=== PATIENT | female | born 1985 | race American Indian/Alaskan Native ===

== ENCOUNTER 2017-08-24 17:41 | Emergency (ER) | payer OTHER ==
[2017-08-24 18:05] VITALS: TEMP 97.8
--- NOTE | 2017-08-24 18:28 | ED PDOC ---
Arrival/HPI - General Chief Complaint: Chest Pain Time Seen by Provider: 08/24/17 17:46 Historian: Patient - History of Present Illness Narrative History of Present Illness (Text): 08/24/17 18:28 A 31 year old female, whose past medical history includes asthma, presents to the emergency department complaining of a cough with wheezing for 6 days. Patient reports her symptoms have improved over the past 2 days. Until today when she developed right upper chest wall pain which she describes as "having a knot in my chest". Patient denies any fever, chills, nausea, vomiting, abdominal pain, shortness of breath or any other complaints. Patient reports old right leg pain which she has had for years. At times she experiences the pain with ambulation but states she unsure what truly exacerbates her pain. Patient denies recent travel, immobilization, surgery or control use. Time/Duration: Other (6 days) Symptom Course: Improving (over past 2 days) Quality: Other Context: Home Past Medical History - Provider Review Nursing Documentation Reviewed: Yes - Infectious Disease Hx of Infectious Diseases: None - Pulmonary Hx Asthma: Yes - Psychiatric Hx Substance Use: No Family/Social History - Physician Review Nursing Documentation Reviewed: Yes Family/Social History: No Known Family HX Smoking Status: Never Smoked Hx Alcohol Use: No Hx Substance Use: No Allergies/Home Meds Allergies/Adverse Reactions: Allergies acetaminophen [From Tylenol] Allergy (Verified 08/24/17 17:55) ANAPHYLAXIS lepirudin [From Refludan] Allergy (Verified 08/24/17 17:55) ANAPHYLAXIS Home Medications: Home Meds Medication Instructions Recorded Confirmed No Known Home Med 08/24/17 08/24/17 Review of Systems - Physician Review All systems were reviewed & negative as marked: Yes - Review of Systems Constitutional: absent: Fevers, Night Sweats Respiratory: Cough, Wheezing. absent: SOB Cardiovascular: Chest Pain (right upper chest wall pain) Gastrointestinal: absent: Abdominal Pain, Nausea, Vomiting Musculoskeletal: Other (old right leg pain) Physical Exam Vital Signs Reviewed: Yes Vital Signs Temp Pulse Resp BP Pulse Ox 08/24/17 18:04 97.8 F 79 18 128/85 100 08/24/17 18:00 98.3 F 69 18 123/85 100 Temperature: Afebrile Blood Pressure: Normal Pulse: Regular Respiratory Rate: Normal Appearance: Positive for: Well-Appearing, Non-Toxic, Comfortable Pain Distress: None Mental Status: Positive for: Alert and Oriented X 3 - Systems Exam Head: Present: Atraumatic, Normocephalic Pupils: Present: PERRL Extroacular Muscles: Present: EOMI Conjunctiva: Present: Normal Mouth: Present: Moist Mucous Membranes Neck: Present: Normal Range of Motion Respiratory/Chest: Present: Clear to Auscultation, Good Air Exchange, Tender to Palpation (Right upper chest wall tenderness). No: Respiratory Distress, Accessory Muscle Use Cardiovascular: Present: Regular Rate and Rhythm, Normal S1, S2. No: Murmurs Abdomen: Present: Normal Bowel Sounds. No: Tenderness, Distention, Peritoneal Signs Back: Present: Normal Inspection Upper Extremity: Present: Normal Inspection. No: Cyanosis, Edema Lower Extremity: Present: Normal Inspection. No: Edema Neurological: Present: GCS=15, CN II-XII Intact, Speech Normal Skin: Present: Warm, Dry, Normal Color. No: Rashes Psychiatric: Present: Alert, Oriented x 3, Normal Insight, Normal Concentration Medical Decision Making ED Course and Treatment: 08/24/17 18:28 Impression: A 31 year old female with right upper chest wall pain. Patient notes a cough and wheezing, which has been improving. Chest pain r/o MSK; low suspicion for PE Plan: -- Chest xray -- EKG -- Labs -- Toradol -- Albuterol -- Reassess and disposition Progress Notes: EKG shows NSR at [address]-segment elevations, normal intervals, normal axis. Interpreted by me. 08/24/17 18:53 Case signed out for Dr. Meyers who will f/u labs, CXR, reevaluate and disposition. - Lab Interpretations Lab Results: 08/24/17 17:55 Lab Results 08/24/17 17:55: WBC 5.3, RBC 4.15, Hgb 12.1, Hct 36.3, MCV 87.5, MCH 29.2, MCHC 33.3, RDW 12.7, Plt Count 290, MPV 11.4 H, Gran % 46.2 L, Lymph % (Auto) 42.9 H , [place] % (Auto) 7.9 H, Eos % (Auto) 2.4, Baso % (Auto) 0.6, Gran # 2.47, Lymph # 2.3, [place] # 0.4, Eos # 0.1, Baso # 0.03 I have reviewed the lab results: Yes - RAD Interpretation Radiology Orders: 08/24/17 18:13 CHEST PORTABLE [RAD] Stat - Medication Orders Current Medication Orders: Discontinued Medications Ketorolac Tromethamine (Toradol) 30 mg IVP STAT STA Stop: 08/24/17 18:14 - Scribe Statement The provider has reviewed the documentation as recorded by the Scribe Valarie Glaser Provider Scribe Attestation: All medical record entries made by the Scribe were at my direction and personally dictated by me. I have reviewed the chart and agree that the record accurately reflects my personal performance of the history, physical exam, medical decision making, and the department course for this patient. I have also personally directed, reviewed, and agree with the discharge instructions and disposition. Disposition/Present on Arrival - Present on Arrival Any Indicators Present on Arrival: No History of DVT/PE: No History of Uncontrolled Diabetes: No Urinary Catheter: No History of Decub. Ulcer: No History Surgical Site Infection Following: None - Disposition Have Diagnosis and Disposition been Completed?: No Diagnosis: Chest pain Disposition Time: 18:54 Condition: FAIR Discharge Instructions (ExitCare): Chest Pain (ED) Forms: [employer] (Malaysian)
[2017-08-24 18:37] LABS: BASO # 0.03 K/mm3 (0.0-2.0); BASO % 0.6 % (0.0-3.0); EOS # 0.1 (0.0-0.7); EOS % 2.4 % (1.5-5.0); GRAN # 2.47 (1.4-6.5); GRAN % 46.2 % (50.0-68.0); HEMOGLOBIN 12.1 g/dL (12.0-16.0); LYMPH # 2.3 (1.2-3.4); LYMPH % 42.9 % (22.0-35.0); MEAN CELL VOLUME 87.5 fl (80.0-105.0); MEAN CORPUSCULAR HEMOGLOBIN 29.2 pg (25.0-35.0); MEAN CORPUSCULAR HGB CONC 33.3 g/dl (31.0-37.0); MEAN PLATELET VOLUME 11.4 fl (7.0-11.0); MONO # 0.4 (0.1-0.6); MONO % 7.9 % (1.0-6.0); RBC 4.15 10^6/uL (3.5-6.1); RED CELL DISTRIBUTION WIDTH 12.7 % (11.5-14.5); WHITE BLOOD COUNT 5.3 10^3/ul (4.5-11.0)
[2017-08-24] MEDS ORDERED: Albuterol 0.083% Inhal Sol (2.5 mg/3 mL) UD IH STA (18:53)
[2017-08-24 18:55] LABS: TROPONIN I 0.01 ng/mL
[2017-08-24 18:56] LABS: INR 1.09 (0.93-1.08); PROTHROMBIN TIME 12.5 SECONDS (9.4-12.5)
[2017-08-24 19:14] LABS: ALB/GLOB RATIO 1.1 (1.1-1.8); ALBUMIN 4.1 g/dL (3.0-4.8); ALT/SGPT 34 U/L (7-56); AST/SGOT 42 U/L (14-36); BLOOD UREA NITROGEN 14 mg/dL (7-21); CALCIUM 9.1 mg/dL (8.4-10.5); GFR AFRICAN-AMERICAN > 60; GFR NON-AFRICAN AMERICAN > 60; MAGNESIUM 1.9 mg/dL (1.7-2.2)
[2017-08-24 19:22] LABS: CK-MB 0.5 ng/mL (0.0-3.6)
[2017-08-24] MEDS ORDERED: Iohexol 350 MG/100 ML VIAL ONE (20:32)
--- NOTE | 2017-08-24 23:12 | CT ---
EXAM: CT Angiography Chest With Intravenous Contrast EXAM DATE/TIME: 08/24/2017 9:09 PM CLINICAL HISTORY: The patient age is 31 years old and is female; Pain; Chest pain; Type not specified; Additional info: R/O pe / chest pain Facility exam id and description: Ct formerly [facility] angio chest pe protocol TECHNIQUE: Axial computed tomographic angiography images of the chest with intravenous contrast using pulmonary embolism protocol. All CT scans at this facility use one or more dose reduction techniques, viz.: automated exposure control; ma/kV adjustment per patient size (including targeted exams where dose is matched to indication; i.e. head); or iterative reconstruction technique. MIP reconstructed images were created and reviewed. Coronal and sagittal reformatted images were created and reviewed. CONTRAST: 100 mL of OMNI 350 administered intravenously. COMPARISON: No relevant prior studies available. FINDINGS: Pulmonary arteries: The main pulmonary trunk, right/left main pulmonary arteries, and the proximal lobar branches demonstrate no definite intraluminal filling defect to suggest pulmonary embolism. Aorta: There is no aneurysm or dissection of the aorta. Lungs: Mild increased interstitial markings and dependent atelectatic change are visualized within the lower lobes. There is no confluent infiltrate within the remaining lungs. No lung mass or dominant lung nodule is visualized. Pleural space: No significant effusion. No pneumothorax. Heart: Fluid is seen in the superior pericardial recesses. No cardiomegaly. Mediastinum: There is mild increased density within the anterior mediastinum, suggestive of thymic tissue or volume averaging with the brachiocephalic vein. Bones/joints: No acute fracture. Lymph nodes: No enlarged lymph nodes. IMPRESSION: 1. No acute pulmonary embolism. 2. Mild increased interstitial markings and dependent atelectatic change are visualized within the lower lobes. 3. Additional CT findings described above.
--- NOTE | 2017-08-24 23:50 | ED PDOC ---
Physical Exam - Physical Exam Narrative Physical Exam (Text): 08/24/17 19:[address] of chest angiogram prior to final disposition/discharge. Patient's symptoms are consistent with asthma and musculoskeletal chest pain. Review of labs showed slightly elevated d-dimer. CT of chest performed, results currently pending. Vital Signs Reviewed: Yes Vital Signs Temp Pulse Resp BP Pulse Ox 08/24/17 18:04 97.8 F 79 18 128/85 100 08/24/17 18:00 98.3 F 69 18 123/85 100 Temperature: Afebrile Blood Pressure: Normal Pulse: Regular Respiratory Rate: Normal Appearance: Positive for: Well-Appearing, Non-Toxic, Comfortable Pain Distress: None Mental Status: Positive for: Alert and Oriented X 3 - Systems Exam Head: Present: Atraumatic, Normocephalic Pupils: Present: PERRL Extroacular Muscles: Present: EOMI Conjunctiva: Present: Normal Mouth: Present: Moist Mucous Membranes Neck: Present: Normal Range of Motion Respiratory/Chest: Present: Clear to Auscultation, Good Air Exchange. No: Respiratory Distress, Accessory Muscle Use Cardiovascular: Present: Regular Rate and Rhythm, Normal S1, S2. No: Murmurs Abdomen: Present: Normal Bowel Sounds. No: Tenderness, Distention, Peritoneal Signs Back: Present: Normal Inspection Upper Extremity: Present: Normal Inspection. No: Cyanosis, Edema Lower Extremity: Present: Normal Inspection. No: Edema Neurological: Present: GCS=15, CN II-XII Intact, Speech Normal Skin: Present: Warm, Dry, Normal Color. No: Rashes Psychiatric: Present: Alert, Oriented x 3, Normal Insight, Normal Concentration Medical Decision Making ED Course and Treatment: 08/24/17 23:[address] scan finally came back from [facility], negative for pulmonary embolism. Patient is feeling fine upon reassessment. Will discharge home. - Lab Interpretations Lab Results: 08/24/17 17:55 08/24/17 17:55 Lab Results 08/24/17 17:55: Sodium 140, Potassium 4.1, Chloride 105, Carbon Dioxide 23, Anion Gap 16, BUN 14, Creatinine 0.8, Est GFR ( Amer) > 60, Est GFR (Non- Af Amer) > 60, Random Glucose 90, Calcium 9.1, Magnesium 1.9, Total Bilirubin 0.6, AST 42 H, ALT 34, Alkaline Phosphatase 59, Lactate Dehydrogenase 527, Total Creatine Kinase 488 H, CK-MB (CK-2) 0.5, CK-MB (CK-2) % Cancelled, Troponin I 0.01, Total Protein 7.6, Albumin 4.1, Globulin 3.6, Albumin/Globulin Ratio 1.1 08/24/17 17:55: PT 12.5, INR 1.09 H, APTT 33.0, D-Dimer, Quantitative 276 H 08/24/17 17:55: WBC 5.3, RBC 4.15, Hgb 12.1, Hct 36.3, MCV 87.5, MCH 29.2, MCHC 33.3, RDW 12.7, Plt Count 290, MPV 11.4 H, Gran % 46.2 L, Lymph % (Auto) 42.9 H , [place] % (Auto) 7.9 H, Eos % (Auto) 2.4, Baso % (Auto) 0.6, Gran # 2.47, Lymph # 2.3, [place] # 0.4, Eos # 0.1, Baso # 0.03 - RAD Interpretation Radiology Orders: 08/24/17 18:13 CHEST PORTABLE [RAD] Stat 08/24/17 21:09 ANGIO CHEST PE PROTOCOL [CT] Stat Anesthesia Director: Radiologist - Medication Orders Current Medication Orders: Discontinued Medications Albuterol Sulfate (Albuterol 0.083% Inhal Ermelinda (2.5 Mg/3 Ml) Ud) 2.5 mg IH STAT STA Stop: 08/24/17 18:54 Last Admin: 08/24/17 19:06 Dose: 2.5 mg Azithromycin (Zithromax) 500 mg PO ONCE STA PRN Reason: Protocol Stop: 08/25/17 00:00 Last Admin: 08/25/17 00:12 Dose: 500 mg Ketorolac Tromethamine (Toradol) 30 mg IVP STAT STA Stop: 08/24/17 18:14 Last Admin: 08/24/17 19:07 Dose: 30 mg MAR Pain Assessment Document 08/24/17 19:07 (Rec: 08/24/17 19:07 [id number] Pain Reassessment Is this a pain reassessment? Yes Sleep Is patient sleeping during reassessment? No Presence of Pain Presence of Pain No Pain Scale Used Pain Scale Used Numeric Location Pain Location Body Site Chest IVP Administration Document 08/24/17 19:07 SF (Rec: 08/24/17 19:07 [id number]) Charges for Administration # of IVP Administrations 1 - Scribe Statement The provider has reviewed the documentation as recorded by the Scribe Joao Manriquez. All medical record entries made by the Scribe were at my direction and personally dictated by me. I have reviewed the chart and agree that the record accurately reflects my personal performance of the history, physical exam, medical decision making, and the department course for this patient. I have also personally directed, reviewed, and agree with the discharge instructions and disposition. Disposition/Present on Arrival - Present on Arrival Any Indicators Present on Arrival: No History of DVT/PE: No History of Uncontrolled Diabetes: No Urinary Catheter: No History of Decub. Ulcer: No History Surgical Site Infection Following: None - Disposition Have Diagnosis and Disposition been Completed?: Yes Diagnosis: Chest pain, Bronchitis, Bronchospasm Disposition: HOME/ ROUTINE Disposition Time: 23:54 Patient Plan: Discharge Patient Problems: Current Active Problems Problem Status Onset Bronchitis Acute Bronchospasm Acute Chest pain Acute Condition: FAIR Discharge Instructions (ExitCare): Chest Pain (ED), Acute Bronchitis (ED), Bronchospasm (ED) Additional Instructions: Take meds as prescribed/follow up with your doctor this week Prescriptions: Naproxen [Naprosyn] 500 mg PO BID PRN #14 tab PRN Reason: Pain Albuterol HFA [Ventolin HFA 90 mcg/actuation (8 g)] 2 puff IH [id number] PRN #1 puff PRN Reason: Wheezing Azithromycin [Zithromax] 250 mg PO DAILY #4 tab [facility] - Follow up with primary Forms: [employer] (Somali), WORK NOTE
[2017-08-25 00:20] VITALS: BP 126/70; PULSE 72; RESP 17; O2SAT 99
--- NOTE | 2017-08-25 08:49 | RAD ---
HISTORY: Chest pain. Portable study 18:58. COMPARISON: No prior. FINDINGS: LUNGS: No active pulmonary disease. PLEURA: No significant pleural effusion identified, no pneumothorax apparent. CARDIOVASCULAR: Normal. OSSEOUS STRUCTURES: No significant abnormalities. VISUALIZED UPPER ABDOMEN: Normal. OTHER FINDINGS: None. IMPRESSION: No active disease.
--- NOTE | 2017-08-25 12:29 | CARD ---
APPROVED REPORT EKG Measurement Heart [id number] NM [id number] <Conclusion> Normal sinus rhythm Possible Left atrial enlargement Borderline ECG
== END 2017-08-25 00:22 | disposition home or self-care (01) ==
LOC: ED 17:41
DX: J40 Bronchitis, not specified as acute or chronic (principal); R07.9 Chest pain, unspecified; J98.01 Acute bronchospasm
CPT/HCPCS: 71045; 71275; 80053; 82550; 82553; 83615; 83735; 84484; 85025; 85378; 85610; 85730; 93005; 96374; 99285; J1885; Q9967

== ENCOUNTER 2018-06-28 14:19 | Emergency (ER) | payer OTHER ==
[2018-06-28 14:44] VITALS: RESP 18; TEMP 98
[2018-06-28] MEDS ORDERED: Sodium Chloride 0.9% 500 ML IV STA (14:54)
--- NOTE | 2018-06-28 15:01 | ED PDOC ---
Arrival/HPI - General Chief Complaint: Dizziness/Lightheaded Time Seen by Provider: 06/28/18 14:24 Historian: Patient - History of Present Illness Time/Duration: Prior to Arrival Symptom Onset: Sudden Symptom Course: Unchanged Severity Level: Mild Associated Symptoms (Text): 06/28/18 14:59 Acute onset of dizziness which she describes as feeling off balance and nausea. No headache. No numbness tingling or paresthesias. No weakness. No focal weakness. No chest pain palpitations or dyspnea. No abdominal pain or vomiting. She has never experienced this previously. It occurred while driving in an [employer] car. She appears to be in no distress. Past Medical History - Infectious Disease Hx of Infectious Diseases: None - Pulmonary Hx Asthma: Yes - Psychiatric Hx Substance Use: No - Anesthesia Hx Anesthesia: No Hx Anesthesia Reactions: No Hx Malignant Hyperthermia: No Family/Social History - Physician Review Nursing Documentation Reviewed: Yes Family/Social History: Unknown Family HX Smoking Status: Never Smoked Hx Alcohol Use: No Hx Substance Use: No Allergies/Home Meds Allergies/Adverse Reactions: Allergies acetaminophen [From Tylenol] Allergy (Verified 08/24/17 17:55) ANAPHYLAXIS lepirudin [From Refludan] Allergy (Verified 08/24/17 17:55) ANAPHYLAXIS Review of Systems - Physician Review All systems were reviewed & negative as marked: Yes - Review of Systems Constitutional: absent: Fatigue, Fevers Respiratory: absent: SOB, Wheezing Cardiovascular: absent: Chest Pain, Palpitations, Syncope Gastrointestinal: Nausea. absent: Abdominal Pain, Constipation, Diarrhea, Vomiting, Anorexia Genitourinary Female: absent: Dysuria, Frequency, Hematuria Neurological: Dizziness. absent: Headache, Focal Weakness, Gait Changes, Speech Changes, Facial Droop, Disequilibrium, Seizure Physical Exam Vital Signs Temp Pulse Resp BP Pulse Ox 06/28/18 14:19 98 F 82 18 124/99 H 100 Temperature: Afebrile Blood Pressure: Hypertensive Pulse: Regular Respiratory Rate: Normal Appearance: Positive for: Well-Appearing, Non-Toxic, Comfortable Pain Distress: None Mental Status: Positive for: Alert and Oriented X 3 - Systems Exam Head: Present: Atraumatic, Normocephalic Pupils: Present: PERRL Extroacular Muscles: Present: EOMI Conjunctiva: Present: Normal Ears: Present: NORMAL TM, Normal Canal. No: Erythema, TM Bulging Mouth: Present: Moist Mucous Membranes Pharnyx: No: ERYTHEMA, EXUDATE, TONSILS ENLARGED Neck: Present: Normal Range of Motion Respiratory/Chest: Present: Clear to Auscultation, Good Air Exchange. No: Respiratory Distress, Accessory Muscle Use Cardiovascular: Present: Regular Rate and Rhythm, Normal S1, S2. No: Murmurs Abdomen: No: Tenderness, Distention, Peritoneal Signs, Rebound, Guarding Upper Extremity: Present: Normal Inspection. No: Cyanosis, Edema Lower Extremity: Present: Normal Inspection. No: Edema Neurological: Present: GCS=15, CN II-XII Intact, Speech Normal, Motor Func Grossly Intact, Normal Sensory Function, Normal Cerebellar Funct, Gait Normal Skin: Present: Warm, Dry, Normal Color. No: Rashes Psychiatric: Present: Alert, Oriented x 3, Normal Insight, Normal Concentration Medical Decision Making ED Course and Treatment: 06/28/18 15:15 EKG shows normal sinus rhythm rate approximately [address] or T-wave changes. 06/28/18 16:44 Patient's dizziness is unchanged. Additional Antivert and saline has been ordered. Her workup is unremarkable. 06/28/18 18:10 Symptoms improved after second dose of Antivert and additional IV fluids. Patient will be discharged home accompanied by her boyfriend to follow-up with PMD. Follow up in ER as needed. - RAD Interpretation Radiology Orders: 06/28/18 14:54 HEAD W/O CONTRAST [CT] Stat CT scan of the head as read by the radiologist shows no acute findings. Renal Medicine Physician: Radiologist - Medication Orders Current Medication Orders: Sodium Chloride (Sodium Chloride 0.9%) 500 mls @ 1,000 mls/hr IV .Q30M STA Stop: 06/28/18 15:23 Meclizine HCl (Antivert) 25 mg PO ONCE ONE Stop: 06/28/18 14:56 Ondansetron HCl (Zofran Inj) 4 mg IVP ONCE ONE Stop: 06/28/18 14:56 Disposition/Present on Arrival - Present on Arrival Any Indicators Present on Arrival: No History of DVT/PE: No History of Uncontrolled Diabetes: No Urinary Catheter: No History of Decub. Ulcer: No History Surgical Site Infection Following: None - Disposition Have Diagnosis and Disposition been Completed?: Yes Diagnosis: Dizziness Disposition: HOME/ ROUTINE Disposition Time: 18:11 Patient Plan: Discharge Condition: IMPROVED Discharge Instructions (ExitCare): Vertigo (a Type of Dizziness) Prescriptions: Meclizine [Antivert] 25 mg PO Q6 #20 tab Ondansetron [Zofran Odt] 4 mg SL Q6 #20 odt Forms: [employer] (French), SCHOOL NOTE
[2018-06-28 16:03] LABS: BASO # 0.02 K/mm3 (0.0-2.0); BASO % 0.3 % (0.0-3.0); EOS # 0.2 (0.0-0.7); EOS % 3.4 % (1.5-5.0); GRAN # 2.77 (1.4-6.5); GRAN % 44.9 % (50.0-68.0); HEMOGLOBIN 12.1 g/dL (12.0-16.0); LYMPH # 2.5 (1.2-3.4); LYMPH % 39.9 % (22.0-35.0); MEAN CELL VOLUME 85.5 fl (80.0-105.0); MEAN CORPUSCULAR HEMOGLOBIN 28.3 pg (25.0-35.0); MEAN CORPUSCULAR HGB CONC 33.1 g/dl (31.0-37.0); MONO # 0.7 (0.1-0.6); MONO % 11.5 % (1.0-6.0); RBC 4.28 10^6/uL (3.5-6.1); RED CELL DISTRIBUTION WIDTH 13.2 % (11.5-14.5); WHITE BLOOD COUNT 6.2 10^3/uL (4.5-11.0)
--- NOTE | 2018-06-28 16:11 | CT ---
Date of service: 06/28/2018 PROCEDURE: CT HEAD WITHOUT CONTRAST. HISTORY: dizzy COMPARISON: None available. TECHNIQUE: Axial computed tomography images were obtained through the head/brain without intravenous contrast. Radiation dose: Total exam DLP = 927.55 mGy-cm. This CT exam was performed using one or more of the following dose reduction techniques: Automated exposure control, adjustment of the mA and/or kV according to patient size, and/or use of iterative reconstruction technique. FINDINGS: HEMORRHAGE: No intracranial hemorrhage. BRAIN: No mass effect or edema. No atrophy or chronic microvascular ischemic changes. VENTRICLES: Unremarkable. No hydrocephalus. CALVARIUM: Unremarkable. PARANASAL SINUSES: Unremarkable as visualized. No significant inflammatory changes. MASTOID AIR CELLS: Unremarkable as visualized. No inflammatory changes. OTHER FINDINGS: None. IMPRESSION: No acute intracranial findings
[2018-06-28 16:17] LABS: ALB/GLOB RATIO 1.2 (1.1-1.8); ALBUMIN 4.1 g/dL (3.0-4.8); ALT/SGPT 28 U/L (7-56); AST/SGOT 39 U/L (14-36); BLOOD UREA NITROGEN 10 mg/dL (7-21); GFR NON-AFRICAN AMERICAN > 60
[2018-06-28 16:27] LABS: TROPONIN I < 0.01 ng/mL
[2018-06-28] MEDS ORDERED: Sodium Chloride 0.9% 500 ML IV ONE (16:43)
[2018-06-28 18:05] VITALS: O2SAT 99
[2018-06-28 18:37] VITALS: BP 118/62; PULSE 78
--- NOTE | 2018-06-28 19:22 | CARD ---
APPROVED REPORT Date of service: 06/28/2018 EKG Measurement Heart [id number] SC [id number] <Conclusion> Normal sinus rhythm Normal ECG
== END 2018-06-28 18:30 | disposition home or self-care (01) ==
LOC: ED 14:19
DX: R42 Dizziness and giddiness (principal)
CPT/HCPCS: 70450; 80053; 82550; 83615; 83735; 84484; 85025; 93005; 96361; 96374; 99284; J2405; J7040